=== PATIENT | female | born 1985 | race Caucasian/White ===

== ENCOUNTER 2019-04-28 18:18 | Emergency (ER) | payer OTHER ==
[2019-04-28 18:29] VITALS: BP 132/78; PULSE 121; BMI 24.5
--- NOTE | 2019-04-28 19:31 | PDOC ---
History of Present Illness - General Chief Complaint: Pain Stated Complaint: PAIN Time Seen by Provider: 04/28/19 19:22 - History of Present Illness Initial Comments: Ms. Rosenbaum is a 34F with no significant PMH presenting for sudden onset of pain throughout the right side of the body. She reports that she has never had this before and it started this morning. Reports frontal headache that does not radiate anywhere else and mild dizziness. Reports right sided chest wall pain that is exacerbated with deep breathing, right sided abdominal pain, and right upper and lower extremity pain. Denies fever, denies cough, denies shortness of breath. No sick contacts, no recent travel. Does not take control. No recent psychosocial stressors. Past History - Past Medical History Allergies/Adverse Reactions: Allergies Allergy/AdvReac Type Severity Reaction Status Date / Time No Known Allergies Allergy Verified 04/28/19 18:28 Home Medications: Ambulatory Orders Ferrous Sulfate [Feosol] 325 mg PO DAILY 06/21/14 Vitamins (Sjr) - 1 tab PO DAILY 06/21/14 Acetaminophen [Tylenol .Regular Strength -] 650 mg PO Q3H PRN #0 tablet Ibuprofen [Motrin -] 600 mg PO Q4H PRN #0 tablet 06/24/14 Ibuprofen [Motrin -] 600 mg PO TID #21 tablet 06/12/16 Asthma: No Cancer: No Cardiac Disorders: No COPD: No Diabetes: No HTN: No Seizures: No Thyroid Disease: No - Reproductive History (#): 2 Para: 1 Spontaneous : 0 - Suicide/Smoking/Psychosocial Hx Smoking Status: No Smoking History: Never smoked Have you smoked in the past 12 months: No Number of Cigarettes Smoked Daily: 0 Information on smoking cessation initiated: No Hx Alcohol Use: No Drug/Substance Use Hx: No Substance Use Type: None Hx Substance Use Treatment: No Review of Systems - Review of Systems Able to Perform ROS?: Yes (Irish speaking ) Is the patient limited Italian proficient: Yes Constitutional: Yes: See HPI. No: Chills, Diaphoresis, Fever, Malaise HEENTM: Yes: See HPI. No: Eye Pain, Blurred Vision, Recent change in vision, Double Vision Respiratory: Yes: See HPI. No: Cough, Orthopnea, Shortness of Breath Cardiac (ROS): Yes: See HPI, Chest Pain (right sided ). No: Edema ABD/GI: No: Abdominal Distended, Constipated, Diarrhea, Nausea, Vomiting : Yes: See HPI. No: Burning, Dysuria Musculoskeletal: Yes: See HPI, Back Pain Integumentary: Yes: See HPI. No: Bruising, Erythema, Rash Neurological: Yes: See HPI, Headache, Dizziness. No: Numbness, Paresthesia, Tingling, Weakness *Physical Exam - Vital Signs Last Vital Signs Temp Pulse Resp BP Pulse Ox 121 H 16 132/78 100 04/28/19 18:26 04/28/19 18:26 04/28/19 18:26 04/28/19 18:26 - Physical Exam General Appearance: Yes: Nourished, Appropriately Dressed. No: Apparent Distress HEENT: positive: EOMI, ETIENNE, Normal ENT Inspection, Normal Voice, Symmetrical, Pharynx Normal Neck: positive: Trachea midline, Supple. negative: Tender, Rigid Respiratory/Chest: positive: Chest Tender, Lungs Clear, Normal Breath Sounds. negative: Respiratory Distress, Accessory Muscle Use Cardiovascular: positive: Regular Rhythm, Tachycardia Vascular Pulses: Dorsalis-Pedis (R): 2+, Doralis-Pedis (L): 2+ Gastrointestinal/Abdominal: positive: Tender (right upper and lower quadrant ), Soft. negative: Organomegaly, Pulsatile Mass Musculoskeletal: positive: Normal Inspection. negative: CVA Tenderness Extremity: positive: Normal Capillary Refill, Normal Range of Motion, Tender ( right thigh, right calf ), Calf Tenderness Integumentary: positive: Normal Color, Dry, Warm Neurologic: positive: pool installer II-XII NML intact, Fully Oriented, Alert, Normal Response (equal sack cleaning hand strength and lower extremity flexion/extension strength ), Motor Strength 5/ ED Treatment Course - LABORATORY CBC & Chemistry Diagram: 04/28/19 19:56 04/28/19 19:56 Medical Decision Making - Medical Decision Making 04/28/19 20:10 This is a 34F with no significant PMH presenting with pain on the right side of the chest, abdomen, and upper/lower extremities and frontal headache. Started suddenly this morning. No shortness of breath. Headache does not radiate. No slurred speech, no focal neurological deficits, no facial droop. Unable to appreciate a difference in swelling in each of her lower extremities. Denies travel, denies OCP use, denies . We'll obtain CBC, CMP, EKG, trops, d-dimer. Give 1 mg Tylenol IV. EKG shows sinus tachycardia HR 111, possible left atrial enlargement, no axial deviation, no ST elevation/depression, QTc 454 ms. 04/28/19 20:46 Pt reassessed. Reports that Tylenol has helped control some of the pain. 04/28/19 21:49 US of gallbladder shows cholelithiasis. 04/28/19 22:29 Pt signed out to Dr[address] Maldonado. *DC/Admit/Observation/Transfer Diagnosis at time of Disposition: Abdominal pain Qualifiers: Abdominal location: unspecified location Qualified Code(s): R10.9 - Unspecified abdominal pain Chest pain Qualifiers: Chest pain type: unspecified Qualified Code(s): R07.9 - Chest pain, unspecified - Discharge Dispostion Disposition: HOME Condition at time of disposition: Stable - Referrals Referrals: Luis Alfredo Akers MD [Staff Physician] - - Patient Instructions Printed Discharge Instructions: DI for Biliary Colic Additional Instructions: 1) Please follow-up with your primary care doctor in the next 2-3 days. Please call tomorrow to schedule a follow up appointment. If you cannot follow up with your doctor within 1 week please return to the Emergency Department for any urgent issues. 2) Your laboratory results were normal here in the ER. Your US shows that you have gallstones. You are to follow up with our surgeon within 1 week to discuss your ER visit and further management of your symptoms. 3) If you have any worsening of symptoms or any other concerns please return to the ER immediately. Return if worsening symptoms including fevers, headache, vomiting, visual or hearing disturbances, abdominal pain, chest pain, shortness of breath, syncope, dehydration, inability to take things by mouth/vomiting, altered mental status, or worsening concerning symptoms. 4) Please continue taking your home medications as directed. Your medications on discharge include Naproxen. Side effects may include upset stomach, abdominal pain, vomiting, or diarrhea. Do not drink alcohol with your medications. - Post Discharge Activity
[2019-04-28] MEDS ORDERED: ACETAMINOPHEN 1000 MG/100 ML VIAL (NON FORMULARY) IVPB ONE (19:35)
[2019-04-28] MEDS ORDERED: ACETAMINOPHEN INJECTION 100 ML IVPB ONE (19:49)
[2019-04-28] MEDS ORDERED: SODIUM CHLORIDE 1,000 ML IV STA (20:17)
[2019-04-28 20:34] LABS: ALBUMIN 3.7 g/dl (3.4-5.0); ALK PHOS 263 U/L (45-117); ANION GAP 6 MMOL/L (8-16); BILIRUBIN,TOTAL 0.4 mg/dL (0.2-1); BLOOD UREA NITROGEN 8.1 mg/dL (7-18); CALCIUM 8.9 mg/dL (8.5-10.1); CHLORIDE 110 mmol/L (98-107); CO2 24 mmol/L (21-32); CREATININE 0.4 mg/dL (0.55-1.3); GLUCOSE,RANDOM 113 mg/dL (74-106); LIPASE 153 U/L (73-393); POTASSIUM 4.1 mmol/L (3.5-5.1); SGOT/AST 25 U/L (15-37); SGPT/ALT 40 U/L (13-61); SODIUM 140 mmol/L (136-145); TOT PROT 7.3 g/dl (6.4-8.2)
[2019-04-28 20:56] LABS: BASO % 0.1 % (0-2.0); EOS % 0.2 % (0-4.5); HEMATOCRIT 38.5 % (32.4-45.2); HEMOGLOBIN 13.1 GM/dL (10.7-15.3); LYMPH % 14.1 % (8-40); MCH 26.6 pg (25.7-33.7); MCHC 34.1 g/dl (32.0-36.0); MEAN PLT VOLUME 8.9 fl (7.5-11.1); MONO % 5.7 % (3.8-10.2); NEUT % 79.9 % (42.8-82.8); PLATELET COUNT 227 K/MM3 (134-434); RBC 4.94 M/mm3 (3.60-5.2); RDW 13.2 % (11.6-15.6); WHITE BLOOD COUNT 10.9 K/mm3 (4.0-10.0)
--- NOTE | 2019-04-28 21:46 | PDOC ---
Documentation entered by Malena Lam SCRIBE, acting as scribe for Devorah Vazquez DO. Devorah Vazquez DO: This documentation has been prepared by the Carole bunn Brenda, SCRIBE, under my direction and personally reviewed by me in its entirety. I confirm that the documentation accurately reflects all work , treatment, procedures, and medical decision making performed by me. Attending Attestation - Resident Resident Name: Rafael Lloyd - ED Attending Attestation I have performed the following: I have examined & evaluated the patient, The case was reviewed & discussed with the resident, I agree w/resident's findings & plan, Exceptions are as noted - HPI HPI: 04/28/19 21:02 The patient is a 34 year old female, with no significant PMH who presents to the emergency department with sharp/warm right sided pain since this morning. The patient reports right sided chest pain that radiates to the right upper quadrant and back. She notes it is worsened by breathing and palpation. Patient is Monegasque-speaking. The patient denies trauma. Denies chest pain, shortness of breath, and dizziness. Denies fever, chills, nausea, vomiting, diarrhea and constipation. Allergies: NKA PCP: No PCP - Physicial Exam PE: 04/28/19 19:49 GENERAL: Awake, in no acute distress HEAD: No signs of trauma EYES: ENT:clear without exudates. Moist mucosa NECK: Normal ROM, LUNGS:. Normal work of breathing. HEART: Regular rate and rhythm, ABDOMEN: Soft, nondistended CHEST WALL: BACK: No midline tenderness. EXTREMITIES:. No erythema, or tenderness NEUROLOGICAL: Alert, SKIN: Warm, Dry - Medical Decision Making 04/28/19 21:45 34-year-old female with intermittent right chest/right upper quadrant pain Exam suggests chest/chest wall pathology though patient does have cholelithiasis on ultrasound Due to elevated d-dimer and resting tachycardia a CTA of the chest will be obtained If within normal limits patient will likely be discharged home to follow-up with surgery for further evaluation versus admission for MRCP pending reevaluation
--- NOTE | 2019-04-28 23:42 | PDOC ---
*Physical Exam - Vital Signs Last Vital Signs Temp Pulse Resp BP Pulse Ox 121 H 16 132/78 100 04/28/19 18:26 04/28/19 18:26 04/28/19 18:26 04/28/19 18:26 - Physical Exam Comments: 04/29/19 05:40 General Appearance: Nourished. No Apparent Distress HEENT: No Pharyngeal Erythema, Tonsillar Exudate, Tonsillar Erythema Neck: No Cervical Lymphadenopathy Respiratory/Chest: Lungs Clear, Normal Breath Sounds. No Crackles, Rales, Rhonchi, Wheezing Cardiovascular: Regular Rhythm, Regular Rate. No Murmur, Gallops, Rubs Gastrointestinal/Abdominal: Normal Bowel Sounds, Soft. No Guarding, Rebound, Tenderness Musculoskeletal: No CVA Tenderness Extremity: Normal Capillary Refill Integumentary: Normal Color, Dry, Warm Neurologic: Fully Oriented, Alert, Normal Mood/Affect, Normal Response, Heart Score/ECG Review #1 ECG reviewed & interpreted by me at: 06:16 04/29/19 06:16 HR 111 ND 166 QRS 88 QTc [address] No Acute ST Changes ED Treatment Course - LABORATORY CBC & Chemistry Diagram: 04/28/19 19:56 04/28/19 19:56 - ADDITIONAL ORDERS Additional order review: Laboratory Results 04/28/19 04/28/19 04/28/19 20:13 19:56 19:56 D-Dimer 614 H Sodium 140 Potassium 4.1 Chloride 110 H Carbon Dioxide 24 Anion Gap 6 L BUN 8.1 Creatinine 0.4 L Est GFR (CKD-EPI)AfAm 158.61 Est GFR (CKD-EPI)NonAf 136.85 Random Glucose 113 H Calcium 8.9 Total Bilirubin 0.4 AST 25 ALT 40 Alkaline Phosphatase 263 H Creatine Kinase 73 Troponin I < 0.02 Total Protein 7.3 Albumin 3.7 Lipase 153 Serum , Qual Negative 04/28/19 19:56 RBC 4.94 MCV 78.0 L MCHC 34.1 RDW 13.2 D MPV 8.9 Neutrophils % 79.9 Lymphocytes % 14.1 D Monocytes % 5.7 Eosinophils % 0.2 D Basophils % 0.1 - Medications Given in the ED: ED Medications Discontinued Medications Generic Name Dose Route Start Last Admin Trade Name Freq PRN Reason Stop Dose Admin Acetaminophen 1,000 mg 04/28/19 19:35 04/28/19 19:50 Ofirmev Injection - IVPB 04/28/19 19:36 1,000 mg ONCE ONE Administration Sodium Chloride 1,000 mls @ 1,000 mls/hr 04/28/19 20:17 04/28/19 22:01 Normal Saline - IV 04/28/19 21:16 1,000 mls/hr ASDIR STA Administration Medical Decision Making - Medical Decision Making 04/29/19 05:44 CBC, cmp, were unremarkable. Gallbladder Us demonstrated gallstones without evidence of acute cholecysitis as read by our radiologist. Chest CTA does not demonstrate any acute pathology as read by our radiologist. The patient was reassessed and reports improvement in their symptoms. We are comfortable discharging the patient home in stable condition. Patient and family made aware of impression and plan, return precautions discussed including but not limited to worsening pain or symptoms, fevers, or signs of infection, chest pain, respiratory distress, inability to tolerate oral intake, dehydration, syncope, or neurologic changes. The patient is to follow up with PMD as recommended within 1 week, follow up information provided and the patient will call for an appointment. The patient is to take medications as instructed for duration of time and continue with supportive care, avoid triggers and precipitants. Patient is safe for outpatient follow-up. *DC/Admit/Observation/Transfer Diagnosis at time of Disposition: Abdominal pain Qualifiers: Abdominal location: unspecified location Qualified Code(s): R10.9 - Unspecified abdominal pain Chest pain Qualifiers: Chest pain type: unspecified Qualified Code(s): R07.9 - Chest pain, unspecified - Discharge Dispostion Disposition: HOME Condition at time of disposition: Stable Decision to Admit order: No - Referrals Referrals: Luis Alfredo Akers MD [Staff Physician] - - Patient Instructions Printed Discharge Instructions: DI for Biliary Colic Additional Instructions: 1) Please follow-up with your primary care doctor in the next 2-3 days. Please call tomorrow to schedule a follow up appointment. If you cannot follow up with your doctor within 1 week please return to the Emergency Department for any urgent issues. 2) Your laboratory results were normal here in the ER. Your US shows that you have gallstones. You are to follow up with our surgeon within 1 week to discuss your ER visit and further management of your symptoms. 3) If you have any worsening of symptoms or any other concerns please return to the ER immediately. Return if worsening symptoms including fevers, headache, vomiting, visual or hearing disturbances, abdominal pain, chest pain, shortness of breath, syncope, dehydration, inability to take things by mouth/vomiting, altered mental status, or worsening concerning symptoms. 4) Please continue taking your home medications as directed. Your medications on discharge include Naproxen. Side effects may include upset stomach, abdominal pain, vomiting, or diarrhea. Do not drink alcohol with your medications. - Post Discharge Activity
--- NOTE | 2019-04-29 12:06 | EKG ---
Test Reason : Blood Pressure : / mmHG Vent. Rate : 111 BPM Atrial Rate : 111 BPM P-R Int : 166 ms QRS Dur : 088 ms QT Int : 334 ms P-R-T Axes : 058 025 053 degrees QTc Int : 454 ms SINUS TACHYCARDIA POSSIBLE LEFT ATRIAL ENLARGEMENT BORDERLINE ECG WHEN COMPARED WITH ECG OF 27-OCT-2011 08:21, ST ELEVATION NOW PRESENT IN ANTERIOR LEADS NONSPECIFIC T WAVE ABNORMALITY NO LONGER EVIDENT IN INFERIOR LEADS Confirmed by Brandon Munoz ([id number]) on 04/29/2019 12:06:02 PM Referred By: Confirmed By:Brandon Munoz
== END 2019-04-28 23:49 | disposition home or self-care (01) ==
LOC: JER 18:18
PROC: 3E0337Z Introduction of Electrolytic and Water Balance Substance into Peripheral Vein, Percutaneous Approach (ICD-10-PCS; principal; 2019-04-28)
PROC: 3E033NZ Introduction of Analgesics, Hypnotics, Sedatives into Peripheral Vein, Percutaneous Approach (ICD-10-PCS; 2019-04-28)
DX: R07.9 Chest pain, unspecified (principal); K80.20 Calculus of gallbladder without cholecystitis without obstruction
CPT/HCPCS: 36415; 71275-TC; 76705-TC; 80053; 82550; 83690; 84484; 84703; 85025; 85379; 93005; 93010; 96361; 96374; 99284-25; J0131; J7030

== ENCOUNTER 2022-03-06 14:48 | Emergency (ER) | payer OTHER ==
[2022-03-06 15:17] VITALS: BP 116/59; PULSE 86; TEMP 98.2; BMI 23.6
[2022-03-06 17:20] LABS: BASO % 1.2 % (0-2.0); EOS % 1.2 % (0-4.5); HEMATOCRIT 34.4 % (32.4-45.2); HEMOGLOBIN 10.7 GM/dL (10.7-15.3); LYMPH % 21.8 % (8-40); MCH 21.2 pg (25.7-33.7); MCHC 31.1 g/dl (32.0-36.0); MEAN PLT VOLUME 8.7 fl (7.5-11.1); MONO % 7.2 % (3.8-10.2); NEUT % 68.6 % (42.8-82.8); PLATELET COUNT 306 10^3/uL (134-434); RBC 5.05 M/mm3 (3.60-5.2); RDW 16.6 % (11.6-15.6); WHITE BLOOD COUNT 7.2 K/mm3 (4.0-10.0)
[2022-03-06 18:58] LABS: EPI CELLS 22 /uL (0-25.1); HYALINE CASTS 4 /uL (0-3.1); PH,URINE 5.5 (5.0-8.0); URINE APPEARANCE CLOUDY; URINE BACTERIA 2145 /uL (0-1359); URINE BILIRUBIN NEGATIVE (NEGATIVE); URINE COLOR YELLOW; URINE GLUCOSE (UA) NEGATIVE (NEGATIVE); URINE KETONE TRACE (NEGATIVE); URINE LEUK ESTERASE 2+ (NEGATIVE); URINE NITRITE NEGATIVE (NEGATIVE); URINE PROTEIN 1+ (NEGATIVE); URINE RBC 4849 /uL (0-23.9); URINE UROBILINOGEN 0.2 mg/dL (0.2-1.0); URINE WBC 269 /uL (0-25.8)
[2022-03-06 19:13] LABS: ANISOCYTOSIS 2+; MACROCYTOSIS 1+; TARGET CELLS 1+
== END 2022-03-06 20:11 | disposition home or self-care (01) ==
LOC: JER 14:48
DX: O20.0 Threatened abortion (principal); N30.00 Acute cystitis without hematuria
CPT/HCPCS: 36415; 76830-TC; 81003; 84702; 85025; 99284-25